=== PATIENT | male | born 1945 | race African-American/Black ===

== ENCOUNTER 2021-10-19 14:22 | Emergency (ER) | payer MEDICARE, BC ==
[~2021-10-19] VITALS: Ht 177.8 cm; Wt 77.1 kg
[2021-10-19] MEDS ORDERED: IV NS 0.9% 1,000 ML BAG IV ONE (14:30)
[2021-10-19] MEDS ORDERED: ONDANSETRON HCL/PF 4 MG/2 ML VIAL ONE (14:30)
[2021-10-19] MEDS ORDERED: ONDANSETRON HCL/PF 4 MG/2 ML VIAL IVP ONE (14:30)
--- NOTE | 2021-10-19 14:46 | NUR ---
PT IS BACK FROM THE CT SCAN.
[2021-10-19 15:22] LABS: BASOPHILS # (AUTO) 0.1 K/uL (0.0-0.2); BASOPHILS % (AUTO) 0.8 % (0.0-2.0); EOSINOPHILS % (AUTO) 6.4 % (0.0-6.0); HEMATOCRIT 43 % (39-51); HEMOGLOBIN 14.5 g/dL (13.5-17.5); LYMPHOCYTES # (AUTO) 1.6 K/uL (0.8-4.8); LYMPHOCYTES % (AUTO) 22.2 % (20.0-44.0); MEAN CORPUSCULAR HGB CONC 34 g/dl (31.0-36.0); MEAN CORPUSCULAR VOLUME 93 fL (80-96); MONOCYTES # (AUTO) 0.2 K/uL (0.1-1.30); MONOCYTES % (AUTO) 2.9 % (2.0-12.0); NEUTROPHILS # (AUTO) 4.8 K/uL (1.8-8.9); NEUTROPHILS % (AUTO) 67.7 % (43.0-81.0); PLATELET COUNT (AUTO) 227 K/uL (150-450); RED BLOOD CELL COUNT(AUTO) 4.67 MIL/uL (4.5-6.0); WHITE BLOOD COUNT (AUTO) 7.1 K/uL (4.3-11.0)
--- NOTE | 2021-10-19 15:41 | NUR ---
COVID SWAB DONE AND SENT TO LAB
[2021-10-19 15:43] LABS: ALANINE AMINOTRANSFERASE 21 U/L (12-78); ALKALINE PHOSPHATASE 67 U/L (46-116); ASPARTATE AMINOTRANSFERASE 22 U/L (15-37); BILIRUBIN,DIRECT 0.2 mg/dL (0.0-0.2); BILIRUBIN,TOTAL 0.6 mg/dL (0.2-1.0); CALCIUM, SERUM 9.6 mg/dL (8.5-10.1); CARBON DIOXIDE 23 mmol/L (21-32); CHLORIDE 102 mmol/L (98-107); CREATININE 1.9 mg/dL (0.6-1.3); GLUCOSE 132 mg/dL (74-106); POTASSIUM 3.8 mmol/L (3.5-5.1); SODIUM SERUM 140 mmol/L (136-145); TOTAL PROTEIN, SERUM 7.7 g/dL (6.4-8.2); UREA NITROGEN, BLOOD 19 mg/dL (7-18)
[2021-10-19] MEDS ORDERED: HYDR25TA4 PO (15:43)
[2021-10-19] MEDS ORDERED: LISI40TA13 PO (15:43)
[2021-10-19] MEDS ORDERED: TADA5TAB2 PO (15:59)
[2021-10-19] MEDS ORDERED: AMLO-212 PO (15:59)
[2021-10-19] MEDS ORDERED: ATOR10TA PO (15:59)
--- NOTE | 2021-10-19 19:35 | NUR ---
RECEIVED REPORT FROM PAULINO LANG FOR [facility]
--- NOTE | 2021-10-19 19:42 | NUR ---
PT RESTING COMFORTABLY IN BED, DENIES ANY PAIN AT THIS TIME. WILL CONTINUE TO MONITOR.
--- NOTE | 2021-10-19 20:02 | NUR ---
LAB AT BEDSIDE
--- NOTE | 2021-10-19 20:55 | NUR ---
Patient discharged to home in stable condition. Written and verbal after care instructions given. Patient verbalizes understanding of instruction.
[2021-10-19 20:56] VITALS: BP 140/67
== END 2021-10-19 21:03 | disposition home or self-care (01) ==
LOC: ER 14:27
DX: R55 Syncope and collapse (principal); R11.10 Vomiting, unspecified; E87.2 Acidosis; I95.9 Hypotension, unspecified; N28.9 Disorder of kidney and ureter, unspecified; I10 Essential (primary) hypertension; Z79.899 Other long term (current) drug therapy; Z20.822 Contact with and (suspected) exposure to COVID-19
CPT/HCPCS: 36415; 70450; 71045; 80048; 80076; 83605 ×2; 84484 ×3; 85025; 87040 ×2; 87426; 93005; 96361; 96374; 99291; J2405; J7030; C9803